=== PATIENT | female | born 1980 | race Caucasian/White ===

== ENCOUNTER 2016-09-16 18:59 | Emergency (ER) | payer BC, OTHER ==
--- NOTE | 2016-09-16 19:08 | EDM.PDOC ---
{null, ED HPI GENERAL MEDICAL PROBLEM - General Chief Complaint: Laceration Stated Complaint: CUT ARM ON HELMET Time Seen by Provider: 09/16/16 19:20 Source of Information: Reports: Patient History Limitations: Reports: No Limitations - History of Present Illness INITIAL COMMENTS - FREE TEXT/NARRATIVE: cut left inner wrist with scissor point while attempting to cut tag off of helmet. unknown date of last tetnus. Onset: Today Location: Reports: Upper Extremity, Left Severity: Mild Associated Symptoms: Reports: No Other Symptoms Left Wrist Pain Score (Numeric/FACES): 2 - Related Data Allergies Allergy/AdvReac Type Severity Reaction Status Date / Time No Known Allergies Allergy Verified 09/16/16 19:25 Home Meds: Home Meds Albuterol [Ventolin HFA] 1 inh INH ASDIRECTED PRN 09/16/16 [History] Insulin Aspart [NovoLOG] 1 unit SQ ASDIRECTED 09/16/16 [History] Sertraline HCl [Zoloft] 1 tab PO BID 09/16/16 [History] ED ROS GENERAL - Review of Systems Review Of Systems: ROS reveals no pertinent complaints other than HPI. Musculoskeletal: Reports: No Symptoms Skin: Reports: Wound (left inner distal wrist) Neurological: Reports: No Symptoms ED EXAM, SKIN/RASH Exam: See Below Exam Limited By: No Limitations General Appearance: Alert, Mild Distress Throat/Mouth: Normal Voice Respiratory/Chest: No Respiratory Distress Cardiovascular: Normal Peripheral Pulses Neurological: Alert, Oriented Skin: Warm, Dry, Wound/Incision (1cm superficial laceration to left inner wrist. ) ED SKIN PROCEDURES - Laceration/Wound Repair Left Wrist Lac/wound length in cm: 1 Appearance: superficial, linear Distal NVT: neuro & vascular intact, no tendon injury Anesthetic Type: local Local anesthesia - Lidocaine (Xylocaine): 1% plain Local anesthetic volume: 1cc Skin prep: chlorhexidine (hibiciens), saline Closed with: sutures Suture size: 4-0 # of sutures: 2 Suture type: nylon Sterile dressing applied: nurse Tetanus status addressed: Yes Complications: No Course - Vital Signs Last Recorded V/S: Last Vital Signs Temp 97.2 F 09/16/16 19:04 Pulse 76 09/16/16 19:04 Resp 20 09/16/16 19:04 BP 144/89 H 09/16/16 19:04 Pulse Ox 99 09/16/16 19:04 - Orders/Labs/Meds Orders: Active Orders 24 hr Category Date Time Status Vaccines to be Administered [RC] PER UNIT ROUTINE Care 09/16/16 19:14 Active Meds: Medications Discontinued Medications Generic Name Dose Route Start Last Admin Trade Name eCsar PRN Reason Stop Dose Admin Bacitracin 1 dose 09/16/16 19:14 09/16/16 19:22 Bacitracin Oint 1 Gm TOP 09/16/16 19:15 1 dose ONETIME ONE Administration Diphtheria/Tetanus/Acell Pertussis 0.5 ml 09/16/16 19:14 09/16/16 19:20 Adacel IM 09/16/16 19:15 0.5 ml .ONCE ONE Administration Lidocaine HCl 30 ml 09/16/16 19:14 09/16/16 19:21 Xylocaine-Mpf 1% INJECT 09/16/16 19:15 30 ml ONETIME ONE Administration Departure - Departure Time of Disposition: 19:33 Disposition: Home, Self-Care 01 Condition: good Clinical Impression: Broken skin - Discharge Information Instructions: Laceration Care, Adult, [id number] Forms: ED Department Discharge Additional Instructions: sutures out in 7-10 days monitor for infection, follow up if redness , swelling or drainage keep covered and dry for 24 hours then wash twice daily and cover with bandaide during day - My Orders Last 24 Hours: My Active Orders 09/16/16 19:14 Vaccines to be Administered [RC] PER UNIT ROUTINE - Assessment/Plan Last 24 Hours: My Active Orders 09/16/16 19:14 Vaccines to be Administered [RC] PER UNIT ROUTINE }
[2016-09-16 19:09] VITALS: BP 144/89
[2016-09-16] MEDS ORDERED: Bacitracin Oint 1 GM U/D Packet TOP ONE (19:14)
[2016-09-16] MEDS ORDERED: Lidocaine 1% 30 ML SDV INJECT ONE (19:14)
[2016-09-16] MEDS ORDERED: Diphtheria,Pertussis(Acell),Tetanus Vaccine 0.5 ML SDV IM ONE (19:14)
== END 2016-09-16 19:40 | disposition home or self-care (01) ==
LOC: DL.ED 18:59
DX: S61.512A Laceration without foreign body of left wrist, initial encounter (principal); W27.2XXA Contact with scissors, initial encounter; Z23 Encounter for immunization
CPT/HCPCS: 12001; 90715; 96372; 99283

== ENCOUNTER 2017-01-02 02:11 | Emergency (ER) | payer OTHER ==
[2017-01-02] MEDS ORDERED: Ketorolac 30 MG/ML SDV IVPUSH ONE (02:46)
--- NOTE | 2017-01-02 02:52 | EDM.PDOC ---
ED HPI GENERAL MEDICAL PROBLEM - General Chief Complaint: Chest Pain Stated Complaint: LOW BLOOD SUGAR, SWEATING, NOT FEELING Time Seen by Provider: 01/02/17 02:47 Source of Information: Reports: Patient History Limitations: Reports: No Limitations - History of Present Illness INITIAL COMMENTS - FREE TEXT/NARRATIVE: onset mid sternal CP 2 days ago achy on-off then tonight woke up with sharp constant mid CP sat up and felt better but pain returned on lying down. denies URI Sx and no-one at home is sick. appetite ok. Mid-Sternal Chest Pain Score (Numeric/FACES): 9 - Related Data Allergies Allergy/AdvReac Type Severity Reaction Status Date / Time No Known Allergies Allergy Verified 01/02/17 02:20 Home Meds: Home Meds Albuterol [Ventolin HFA] 1 inh INH ASDIRECTED PRN 09/16/16 [History] Insulin Aspart [NovoLOG] 1 unit SQ ASDIRECTED 09/16/16 [History] Sertraline HCl [Zoloft] 1 tab PO BID 09/16/16 [History] Past Medical History - Past Health History Medical/Surgical History: Denies Medical/Surgical History Respiratory History: Reports: Asthma Psychiatric History: Reports: Anxiety, Depression Endocrine/Metabolic History: Reports: Diabetes, Type I Dermatologic History: Reports: Psoriasis Social & Family History - Tobacco Use Smoking Status *Q: Current Every Day Smoker Years of Tobacco use: 13 Packs/Tins Daily: 0.5 Second Hand Smoke Exposure: Yes - Caffeine Use Caffeine Use: Reports: Coffee, Soda - Recreational Drug Use Recreational Drug Use: No ED ROS GENERAL - Review of Systems Review Of Systems: ROS reveals no pertinent complaints other than HPI. ED EXAM, GENERAL - Physical Exam Exam: See Below Exam Limited By: No Limitations General Appearance: Alert, WD/WN, Anxious, Mild Distress Ears: Hearing Grossly Normal Throat/Mouth: Normal Voice, No Airway Compromise Head: Atraumatic Neck: Non-Tender, Full Range of Motion Respiratory/Chest: No Respiratory Distress Cardiovascular: Regular Rate, Rhythm GI/Abdominal: Soft, Non-Tender Neurological: Alert, Oriented, Normal Cognition, Normal Gait, No Motor/Sensory Deficits Psychiatric: Anxious Skin Exam: Warm, Dry, Normal Color Lymphatic: No Adenopathy Course - Vital Signs Last Recorded V/S: Last Vital Signs Temp 36.4 C 01/02/17 02:12 Pulse 75 01/02/17 02:12 Resp 18 01/02/17 02:12 BP 131/91 H 01/02/17 03:20 Pulse Ox 99 01/02/17 02:12 - Orders/Labs/Meds Orders: Active Orders 24 hr Category Date Time Status Blood Glucose Check, Bedside [RC] ONETIME Care 01/02/17 02:59 Active Blood Glucose Check, Bedside [RC] ONETIME Care 01/02/17 03:06 Active EKG Documentation Completion [RC] STAT Care 01/02/17 02:24 Active Chest 1V Frontal [CR] Urgent Exams 01/02/17 02:26 Taken Labs: Laboratory Tests 01/02/17 01/02/17 01/02/17 Range/Units 02:16 02:28 02:28 WBC 13.9 H (5.0-10.0) 10^3/uL RBC 4.90 (4.2-5.4) 10^6/uL Hgb 13.7 (12.0-16.0) g/dL Hct 41.7 (37.0-47.0) % MCV 85.1 (80-100) fL MCH 28.0 (27.0-34.0) pg MCHC 32.9 L (33.0-35.0) g/dL Plt Count 259 (150-450) 10^3/uL Neut % (Auto) 59.7 (42.2-75.2) % Lymph % (Auto) 28.7 (20.5-50.1) % [place] % (Auto) 9.3 H (2-8) % Eos % (Auto) 2.0 (1.0-3.0) % Baso % (Auto) 0.3 (0.0-1.0) % D-Dimer, Quantitative (0-400) ng/mL Sodium 141 (135-145) mmol/L Potassium 3.2 L (3.6-5.0) mmol/L Chloride 101 (101-111) mmol/L Carbon Dioxide 29.0 (21.0-31.0) mmol/L Anion Gap 14.2 BUN 13 (7-18) mg/dL Creatinine 0.8 (0.6-1.3) mg/dL Est Cr Clr Drug Dosing 94.54 mL/min Estimated GFR (MDRD) > 60 BUN/Creatinine Ratio 16.25 Glucose 142 H (74-105) mg/dL POC Glucose 122 H (70-105) mg/dl Calcium 9.1 (8.4-10.2) mg/dl Total Bilirubin 0.2 (0.2-1.0) mg/dL AST 32 (10-42) IU/L ALT 18 (10-60) IU/L Alkaline Phosphatase 85 (42-121) IU/L Troponin I 0.02 (0.00-0.02) ng/ml Total Protein 7.1 (6.7-8.2) g/dl Albumin 3.4 (3.2-5.5) g/dl Globulin 3.7 Albumin/Globulin Ratio 0.92 / Range/Units 02:28 WBC (5.0-10.0) 10^3/uL RBC (4.2-5.4) 10^6/uL Hgb (12.0-16.0) g/dL Hct (37.0-47.0) % MCV (80-100) fL MCH (27.0-34.0) pg MCHC (33.0-35.0) g/dL Plt Count (150-450) 10^3/uL Neut % (Auto) (42.2-75.2) % Lymph % (Auto) (20.5-50.1) % [place] % (Auto) (2-8) % Eos % (Auto) (1.0-3.0) % Baso % (Auto) (0.0-1.0) % D-Dimer, Quantitative 179 (0-400) ng/mL Sodium (135-145) mmol/L Potassium (3.6-5.0) mmol/L Chloride (101-111) mmol/L Carbon Dioxide (21.0-31.0) mmol/L Anion Gap BUN (7-18) mg/dL Creatinine (0.6-1.3) mg/dL Est Cr Clr Drug Dosing mL/min Estimated GFR (MDRD) BUN/Creatinine Ratio Glucose (74-105) mg/dL POC Glucose (70-105) mg/dl Calcium (8.4-10.2) mg/dl Total Bilirubin (0.2-1.0) mg/dL AST (10-42) IU/L ALT (10-60) IU/L Alkaline Phosphatase (42-121) IU/L Troponin I (0.00-0.02) ng/ml Total Protein (6.7-8.2) g/dl Albumin (3.2-5.5) g/dl Globulin Albumin/Globulin Ratio Meds: Medications Discontinued Medications Generic Name Dose Route Start Last Admin Trade Name Freq PRN Reason Stop Dose Admin Ketorolac Tromethamine 15 mg 01/02/17 02:46 01/02/17 02:55 Toradol IVPUSH 01/02/17 02:47 15 mg ONETIME ONE Administration Nitroglycerin 0.4 mg 01/02/17 03:14 01/02/17 03:20 Nitrostat SL 01/02/17 03:15 0.4 mg ONETIME ONE Administration - Re-Assessments/Exams Free Text/Narrative Re-Assessment/Exam: 01/02/17 03:17 results discussed with pt who states IV toradol had no effect. 01/02/17 03:33 s/p SL NTG = better but not 100% within 5 minutes. 01/02/17 03:[address] Awad @ who kindly accepted pt. Departure - Departure Time of Disposition: 03:57 Disposition: DC/Tfer to Acute Hospital 02 Reason for Transfer *Q: Other Condition: Fair Clinical Impression: Acute coronary syndrome Forms: Interfacility Transfer EMTALA - My Orders Last 24 Hours: My Active Orders 01/02/17 02:24 EKG Documentation Completion [RC] STAT 01/02/17 02:26 Chest 1V Frontal [CR] Urgent 01/02/17 02:59 Blood Glucose Check, Bedside [RC] ONETIME 01/02/17 03:06 Blood Glucose Check, Bedside [RC] ONETIME - Assessment/Plan Last 24 Hours: My Active Orders 01/02/17 02:24 EKG Documentation Completion [RC] STAT 01/02/17 02:26 Chest 1V Frontal [CR] Urgent 01/02/17 02:59 Blood Glucose Check, Bedside [RC] ONETIME 01/02/17 03:06 Blood Glucose Check, Bedside [RC] ONETIME
[2017-01-02 02:54] LABS: CHLORIDE,CL 101 mmol/L (101-111); SODIUM,NA 141 mmol/L (135-145)
[2017-01-02] MEDS ORDERED: Nitroglycerin 0.4 MG Tab.SL SL ONE (03:14)
[2017-01-02 03:21] VITALS: BP 131/91
[2017-01-02] MEDS ORDERED: Ondansetron 4 MG/2 ML SDV IV ONE (04:15)
[2017-01-02] MEDS ORDERED: Morphine 2 MG/ML Syringe IVPUSH ONE (04:15)
--- NOTE | 2017-01-05 11:04 | EKG ---
01/02/2017 - SAMIRA ALBERTS - This 12-lead EKG, shows a normal sinus rhythm with a ventricular rate of 74. Occasional PAC. There are diffuse ischemic changes seen in multiple leads including inferior and anterior leads. Rule out acute coronary syndrome. Followup following transfer: 1. The patient underwent cardiac catheterization 01/02/2017, and was found to have significant multivessel coronary artery disease involving left main, circumflex, LAD, and total occlusion of the RCA. Successful angioplasty was performed on the mid-right coronary artery to establish flow. 2. On 01/03/2017, the patient underwent three-vessel coronary artery bypass grafting. [facility] /[id number]
== END 2017-01-02 04:26 ==
LOC: DL.ED 02:11
DX: I24.9 Acute ischemic heart disease, unspecified (principal); J45.909 Unspecified asthma, uncomplicated; F41.9 Anxiety disorder, unspecified; F32.9 Major depressive disorder, single episode, unspecified; E10.9 Type 1 diabetes mellitus without complications; F17.210 Nicotine dependence, cigarettes, uncomplicated; Z79.4 Long term (current) use of insulin
CPT/HCPCS: 36415; 71010; 80053; 82962; 84484; 85025; 85379; 93005; 96374; 96375; 99285; A9270; J1885; J2270; J2405